=== PATIENT | female | born 1965 | race Caucasian/White ===

== ENCOUNTER 2024-01-10 15:45 | Emergency (ER) | payer BC ==
--- NOTE | 2024-01-10 15:53 | ERPHSYRPT ---
- History of Present Illness Time Seen by Provider: 01/10/24 15:52 Historian: patient, EMS Exam Limitations: no limitations Physician History: This is a 58-year-old white female patient who presents with sharp, first mid back pain that radiated to her anterior chest that occurred after eating a grilled cheese sandwich. Patient has not ever been diagnosed with coronary artery disease. There are no comparison twelve-lead EKGs available. Patient was given 324 mg baby aspirin and 1 sublingual nitroglycerin en route. Patient was transported to the emergency department by the paramedics. The patient's pain has completely resolved. She is not short of breath. She has not had a cough. She has not had fever. Patient is a daily smoker of tobacco cigarettes. Timing/Duration: today Activities at Onset: other Quality: sharpness, stabbing (Eating) Location: back (First in back then radiated to the chest) Severity of Pain-Max: mild Severity of Pain-Current: none Modifying Factors: Improves With: nitroglycerin (Patient was given 1 sublingual nitroglycerin en route to the emergency department by the paramedics), aspirin (Paramedics provided the patient with 325 mg of baby aspirin), other (Cleared when patient was eating) Associated Symptoms: denies symptoms Prior Chest Pain/Cardiac Workup: no prior chest pain, no prior cardiac workup Nitro Today/Relief: 0.4 mg x 1, provided by EMS Aspirin Treatment Today: 81 mg x 4, provided by EMS Allergies/Adverse Reactions: No Known Drug Allergies Allergy (Unverified 01/10/24 15:56) Travel Risk - International Travel Have you traveled outside of the country in past 3 weeks: No - Emerging Infectious Disease Are you exhibiting symptoms associated with any current EIDs: No - Review of Systems Constitutional: No Symptoms Eyes: No Symptoms Ears, Nose, & Throat: No Symptoms Respiratory: No Symptoms Cardiac: Chest Pain (Now resolved completely) Abdominal/Gastrointestinal: No Symptoms Genitourinary Symptoms: No Symptoms Musculoskeletal: No Symptoms Skin: No Symptoms Neurological: No Symptoms Psychological: No Symptoms Endocrine: No Symptoms Hematologic/Lymphatic: No Symptoms Immunological/Allergic: No Symptoms All Other Systems: Reviewed and Negative - Nursing Vital Signs Nursing Vital Signs: Initial Vital Signs Temperature 98.2 F 01/10/24 15:57 Pulse Rate 67 01/10/24 15:57 Respiratory Rate 18 01/10/24 15:57 Blood Pressure 135/72 01/10/24 15:57 O2 Sat by Pulse Oximetry 98 01/10/24 15:57 Pain Scale Pain Intensity 3 - Course Nursing assessment & vital signs reviewed: Yes EKG Interpreted by Me: RATE (63), Sinus Rhythm, NORMAL AXIS, NORMAL INTERVALS, Q-wave (Inferior Q waves), Other (No acute ischemic changes on today's twelve- lead EKG. No comparison twelve-lead EKG. QTc is 401) Ordered Tests: Active Orders 24 hr Category Date Time Status EKG-ER Only STAT Care 01/10/24 16:07 Active IV Insertion STAT Care 01/10/24 16:07 Active Pulse Oximetry (ED) STAT Care 01/10/24 16:07 Active CHEST 1 VIEW (PORTABLE) Stat Exams 01/10/24 16:07 Completed CBC W DIFF Stat Lab 01/10/24 16:30 Completed CMP Stat Lab 01/10/24 16:30 Completed D-DIMER QUANTITATIVE Stat Lab 01/10/24 16:30 Completed NT PRO BNPII Stat Lab 01/10/24 16:30 Completed PROTIME WITH INR Stat Lab 01/10/24 16:30 Completed TROPONIN Q4H Lab 01/10/24 16:30 Completed TROPONIN Q4H Lab 01/10/24 17:52 Completed TROPONIN Q4H Lab 01/11/24 00:15 Ordered Medication Summary Discontinued Medications Generic Name Dose Route Start Last Admin Trade Name Freq PRN Reason Stop Dose Admin Aspirin 324 mg 01/10/24 16:07 01/10/24 16:18 Aspirin 81 Mg Tab.Chew PO 01/10/24 16:08 Not Given STAT ONE Ceftriaxone Sodium 1 gm in 100 mls @ 200 mls/hr 01/10/24 17:33 01/10/24 18:18 Rocephin 1 Gm / 100 Ml Nacl IV 01/10/24 18:02 Infused STAT ONE Infusion Ceftriaxone Sodium Confirm 01/10/24 17:41 Rocephin 1 Gm / 100 Ml Nacl Administered 01/10/24 17:42 Dose 1 gm in 100 mls @ ud IV .STK-MED ONE Lab/Rad Data: Laboratory Result Diagrams 01/10/24 16:30 01/10/24 16:30 Laboratory Results 01/10/24 01/10/24 01/10/24 Range/Units 17:52 16:30 16:30 WBC (3.98-10.04) x10^3/uL RBC (3.93-5.22) x10^6/uL Hgb (11.2-15.7) g/dL Hct (34.1-44.9) % MCV (79.4-94.8) fL MCH (25.6-32.2) pg MCHC (32.2-35.5) g/dL RDW (11.7-14.4) % Plt Count (182-369) x10^3/uL MPV (9.4-12.3) fL Gran % (34.0-71.1) % Immature Gran % (Auto) (0.001-0.429) % Nucleat RBC Rel Count (0.00-0.2) % Eos # (Auto) (0.04-0.36) x10^3/uL Immature Gran # (Auto) (0.001-0.031) x10^3u/L Absolute Lymphs (auto) (1.18-3.74) x10^3/uL Absolute Monos (auto) (0.24-0.86) x10^3/uL Absolute Nucleated RBC (0.00-0.012) x10^3u/L Lymphocytes % (19.3-51.7) % Monocytes % (4.7-12.5) % Eosinophils % (0.7-5.8) % Basophils % (0.1-1.2) % Absolute Granulocytes (1.56-6.13) x10^3/uL Basophils # (0.01-0.08) x10^3/uL PT 10.6 (9.4-12.5) SECONDS INR 0.97 (0.8-3.0) D-Dimer 0.20 (0.0-0.50) mg/L Sodium (135-145) mmol/L Potassium (3.5-5.1) mmol/L Chloride (98-107) mmol/L Carbon Dioxide (22-30) mmol/L Anion Gap (5-15) MEQ/L BUN (7-17) mg/dL Creatinine (0.52-1.04) mg/dL Estimated GFR ML/MIN Glucose (74-106) mg/dL Calcium (8.4-10.2) mg/dL Total Bilirubin (0.2-1.3) mg/dL AST (14-36) U/L ALT (0-35) U/L Alkaline Phosphatase (38-126) U/L Troponin I < 0.012 < 0.012 (0.000-0.033) ng/mL NT-Pro-B Natriuret Pep (<300) pg/mL Serum Total Protein (6.3-8.2) g/dL Albumin (3.5-5.0) g/dL 01/10/24 01/10/24 Range/Units 16:30 16:30 WBC 10.9 H (3.98-10.04) x10^3/uL RBC 4.65 (3.93-5.22) x10^6/uL Hgb 13.8 (11.2-15.7) g/dL Hct 42.3 (34.1-44.9) % MCV 91.0 (79.4-94.8) fL MCH 29.7 (25.6-32.2) pg MCHC 32.6 (32.2-35.5) g/dL RDW 13.2 (11.7-14.4) % Plt Count 306 (182-369) x10^3/uL MPV 10.7 (9.4-12.3) fL Gran % 79.7 H (34.0-71.1) % Immature Gran % (Auto) 0.3 (0.001-0.429) % Nucleat RBC Rel Count 0.0 (0.00-0.2) % Eos # (Auto) 0.07 (0.04-0.36) x10^3/uL Immature Gran # (Auto) 0.03 (0.001-0.031) x10^3u/L Absolute Lymphs (auto) 1.57 (1.18-3.74) x10^3/uL Absolute Monos (auto) 0.49 (0.24-0.86) x10^3/uL Absolute Nucleated RBC 0.00 (0.00-0.012) x10^3u/L Lymphocytes % 14.4 L (19.3-51.7) % Monocytes % 4.5 L (4.7-12.5) % Eosinophils % 0.6 L (0.7-5.8) % Basophils % 0.5 (0.1-1.2) % Absolute Granulocytes 8.69 H (1.56-6.13) x10^3/uL Basophils # 0.05 (0.01-0.08) x10^3/uL PT (9.4-12.5) SECONDS INR (0.8-3.0) D-Dimer (0.0-0.50) mg/L Sodium 139 (135-145) mmol/L Potassium 4.1 (3.5-5.1) mmol/L Chloride 104 (98-107) mmol/L Carbon Dioxide 27 (22-30) mmol/L Anion Gap 12.2 (5-15) MEQ/L BUN 14 (7-17) mg/dL Creatinine 0.69 (0.52-1.04) mg/dL Estimated GFR 99.3 ML/MIN Glucose 140 H (74-106) mg/dL Calcium 10.2 (8.4-10.2) mg/dL Total Bilirubin 0.50 (0.2-1.3) mg/dL AST 75 H (14-36) U/L ALT 42 H (0-35) U/L Alkaline Phosphatase 98 (38-126) U/L Troponin I (0.000-0.033) ng/mL NT-Pro-B Natriuret Pep 48.6 (<300) pg/mL Serum Total Protein 7.3 (6.3-8.2) g/dL Albumin 4.3 (3.5-5.0) g/dL - Progress Progress: improved Air Movement: good Progress Note: 01/10/24 18:18 My medical decision making and the assignment of moderate complexity to this patient's medical issue today is based on review of the patient's past medical history, review the patient's medication list, reviewed patient drug allergy list, history present illness and physical findings. The workup in this patient includes placement of intravenous line, chest x-ray, CBC, CMP, BNP, D-dimer level, troponin level and twelve-lead EKG. Differential diagnosis includes but not limited to myocardial infarction, electrolyte abnormality, arrhythmia, pneumonia I interpreted the patient's laboratory data results. The patient has a mild leukocytosis with a mild left shift. Otherwise no acute or emergent findings. Chest x-ray was interpreted by the radiologist and I reviewed the impression. Impression states that the differential opacification, infection versus bronchitis versus bronchovascular congestion. We will repeat the twelve-lead EKG and the troponin. If these show no acute changes, we will treat the patient as a respiratory infection with Rocephin 1 g intravenous here in the emergency department followed by outpatient cefdinir antibiotic to be remotely sent to the patient's pharmacy. 01/10/24 18:39 I interpreted the repeat twelve-lead EKG. It was performed on 12/31/2023 at 1754. The rate is 68 bpm. It is normal sinus rhythm. Normal axis deviation, normal intervals, normal QRS. QTc is 398. No evidence of acute ischemia. Blood Culture(s) Obtained: No Antibiotics given: Yes Counseled pt/family regarding: lab results, diagnosis, need for follow-up, rad results Medical Desision Making - Independent Historian Additional History obtained from: Family - Diagnostic Testing Diagnostic test were ordered, analyzed, and reviewed by me: Yes Radiological Interpretation: Reviewed by me, Teleradiologist Report - Risk of complications The pt has a mod risk of morbidity or mortality based on: Need for prescription drug management - Departure Departure Disposition: Home Clinical Impression: Infiltrate of lung present on chest x-ray Condition: Stable Critical Care Time: No Referrals: Nara Grewal [NON-STAFF PHY W/O PRIVILEGES] - Follow up/PCP as directed Additional Instructions: Drink plenty fluids. Take your medication as prescribed. Call your primary care provider on 01/13/2024 to make arrangements for a follow-up appointment for further evaluation management and to be seen in the next 3 to 5 days. If you have recurring symptoms, return to the emergency department for further evaluation management. Prescriptions: Cefdinir 300 mg PO BID #14 cap
[2024-01-10 16:17] VITALS: RESP 18; TEMP 98.2; O2SAT 98
[2024-01-10] MEDS: BABY ASPIRIN 81 MG CHEW PO ONE (16:18)
[2024-01-10 16:37] LABS: Absolute Neutrophil Ct (ANC) 8.69 x10^3/uL (1.56-6.13); BASOPHIL % 0.5 % (0.1-1.2); Basophil (Absolute #) 0.05 x10^3/uL (0.01-0.08); Eosinophil % 0.6 % (0.7-5.8); Eosinophil (Absolute #) 0.07 x10^3/uL (0.04-0.36); Hematocrit 42.3 % (34.1-44.9); Hemoglobin 13.8 g/dL (11.2-15.7); IMMATURE GRAN # 0.03 x10^3u/L (0.001-0.031); IMMATURE GRAN % 0.3 % (0.001-0.429); Lymphocyte (Absolute #) 1.57 x10^3/uL (1.18-3.74); Lymphocytes % 14.4 % (19.3-51.7); Mean Corpuscular Hemoglobin 29.7 pg (25.6-32.2); Mean Corpuscular Hgb Concent. 32.6 g/dL (32.2-35.5); Mean Platelet Volume 10.7 fL (9.4-12.3); Monocyte (Absolute #) 0.49 x10^3/uL (0.24-0.86); Monocytes % 4.5 % (4.7-12.5); Neutrophil % 79.7 % (34.0-71.1); Platelet Count 306 x10^3/uL (182-369); Red Blood Count 4.65 x10^6/uL (3.93-5.22); Red Cell Distribution Width 13.2 % (11.7-14.4); White Blood Count 10.9 x10^3/uL (3.98-10.04)
[2024-01-10 16:49] LABS: D-DIMER QUANTITATIVE 0.2 mg/L (0.0-0.50); INR 0.97 (0.8-3.0); PROTIME 10.6 SECONDS (9.4-12.5)
--- NOTE | 2024-01-10 16:51 | XRAY ---
CLINICAL HISTORY: Chest pain COMPARISON: None. TECHNIQUE: X-ray of the chest, PA view. FINDINGS: Mildly prominent bilateral perihilar interstitial markings in the right inferior lobe; possibly bronchovascular congestion versus chronic bronchitis changes. Otherwise, clear lungs. No pulmonary consolidation or collapse. The cardiac size is normal. The bony thorax is unremarkable. The costophrenic and cardiophrenic angles are clear. IMPRESSION: The differential opacification is an infection versus bronchitis or bronchovascular congestion. Advise clinical correlation and follow-up. [facility] ER was called at [phone] at 3:45 PM HYGIENE COORDINATOR, 01/10/[address] Rogers was informed about the presence of important medical findings. Electronically Signed by: Aleja Panda MD. (01/10/2024 16:46:28 EDT)
[2024-01-10 17:03] LABS: ALBUMIN 4.3 g/dL (3.5-5.0); ANION GAP 12.2 MEQ/L (5-15); BILIRUBIN,TOTAL 0.5 mg/dL (0.2-1.3); Calcium 10.2 mg/dL (8.4-10.2); Creatinine 1 0.69 mg/dL (0.52-1.04); EST GLOMERULAR FILTRATION RATE 99.3 ML/MIN; NT PRO BNPII 48.6 pg/mL (<300); Potassium 4.1 mmol/L (3.5-5.1); Total Protein 7.3 g/dL (6.3-8.2)
[2024-01-10] MEDS ORDERED: ROCEPHIN 1 GM / 100 ML NaCl 1 GM/100 ML IVPB IV ONE (17:41)
[2024-01-10] MEDS: ROCEPHIN 1 GM / 100 ML NaCl 1 GM/100 ML IVPB IV ONE (17:48)
[2024-01-10 18:24] VITALS: BP 131/73; PULSE 74
== END 2024-01-10 18:51 | disposition home or self-care (01) ==
LOC: ED 15:45
DX: R91.8 Other nonspecific abnormal finding of lung field (principal); R07.9 Chest pain, unspecified; M54.6 Pain in thoracic spine; Z79.899 Other long term (current) drug therapy; Z72.0 Tobacco use
CPT/HCPCS: 36000; 36415; 71045; 80053; 83880; 84484; 85025; 85379; 85610; 93005; 94760; 96365; 99284; J0696